=== PATIENT | male | born 1995 | race American Indian/Alaskan Native ===

== ENCOUNTER 2017-09-02 16:13 | Emergency (ER) | payer MEDICAID ==
[2017-09-02 16:27] VITALS: BP 152/87
[2017-09-02] MEDS ORDERED: predniSONE 20 MG Tab PO ONE (17:09)
[2017-09-02] MEDS ORDERED: Codeine/Promethazine 10-6.25 MG/5 ML Syrup 5 ML UD Cup PO ONE (17:09)
[2017-09-02] MEDS ORDERED: Albuterol 6.7 GM Inhaler INH ONE (17:10)
[2017-09-02] MEDS ORDERED: Codeine/Promethazine 10-6.25 MG/5 ML Syrup 5 ML UD Cup ONE (17:21)
--- NOTE | 2017-09-03 17:15 | EDM.PDOC ---
Scribed by Ju Garnica 09/03/17 1715 for Sinan Frederick MD ED HPI GENERAL MEDICAL PROBLEM - General Chief Complaint: Respiratory Problem Stated Complaint: COLD [phone] Time Seen by Provider: 09/02/17 16:32 Source of Information: Reports: Patient, RN, RN Notes Reviewed History Limitations: Reports: No Limitations - History of Present Illness INITIAL COMMENTS - FREE TEXT/NARRATIVE: Patient presents with complaint of fever, cough, generalized body aches and sore throat. Brother at home with same symptoms. Denies difficulty breathing or wheezing. Duration: Week(s): (1) Location: Reports: Other (sore throat) Quality: Reports: Ache Severity: Moderate Improves with: Reports: None Worsens with: Reports: None Associated Symptoms: Reports: No Other Symptoms Back Pain Score (Numeric/FACES): 6 - Related Data Allergies Allergy/AdvReac Type Severity Reaction Status Date / Time No Known Allergies Allergy Verified 09/02/17 16:28 Home Meds: Home Meds . [No Known Home Meds] 12/19/13 [History] Past Medical History - Past Health History Medical/Surgical History: Denies Medical/Surgical History HEENT History: Reports: Other (See Below) Other HEENT History: dental caries Cardiovascular History: Reports: None Respiratory History: Reports: None Gastrointestinal History: Reports: None Genitourinary History: Reports: None Musculoskeletal History: Reports: None Neurological History: Reports: None Psychiatric History: Reports: None Endocrine/Metabolic History: Reports: None, Obesity/BMI 30+ Hematologic History: Reports: None Immunologic History: Reports: None Oncologic (Cancer) History: Reports: None Dermatologic History: Reports: None - Infectious Disease History Infectious Disease History: Reports: None - Past Surgical History Head Surgeries/Procedures: Reports: None Social & Family History - Family History Family Medical History: Noncontributory - Tobacco Use Smoking Status *Q: Never Smoker Years of Tobacco use: 5 Second Hand Smoke Exposure: No - Caffeine Use Caffeine Use: Reports: Soda, Tea - Recreational Drug Use Recreational Drug Use: No ED ROS GENERAL - Review of Systems Review Of Systems: ROS reveals no pertinent complaints other than HPI. ED EXAM, GENERAL - Physical Exam Exam: See Below Exam Limited By: No Limitations General Appearance: Alert, WD/WN, No Apparent Distress, Obese Eye Exam: Bilateral Eye: Normal Inspection Ears: Normal External Exam, Normal Canal, Hearing Grossly Normal, Normal TMs Nose: No Blood, Other (mild nasal congestion with yellow mucus.) Throat/Mouth: Normal Lips, Normal Voice, No Airway Compromise, Other (streaks of pharyngeal erythema.) Head: Atraumatic, Normocephalic Neck: Normal Inspection, Supple, Non-Tender, Full Range of Motion Respiratory/Chest: No Respiratory Distress, No Accessory Muscle Use, Chest Non- Tender, Other (harsh dry cough) Cardiovascular: Normal Peripheral Pulses, Regular Rate, Rhythm, No Edema, No Gallop, No JVD, No Murmur, No Rub GI/Abdominal: Normal Bowel Sounds, Soft, Non-Tender, No Organomegaly, No Distention, No Abnormal Bruit, No Mass, Other (obese) (Male) Exam: Deferred Rectal (Males) Exam: Deferred Back Exam: Normal Inspection, Full Range of Motion, NT Extremities: Normal Inspection, Normal Range of Motion, Non-Tender, Normal Capillary Refill, No Pedal Edema Neurological: Alert Psychiatric: Normal Affect, Normal Mood Skin Exam: Warm, Dry, Intact, Normal Color, No Rash Course - Vital Signs Last Recorded V/S: Last Vital Signs Temp 36.2 C 09/02/17 16:25 Pulse 74 09/02/17 16:25 Resp 22 H 09/02/17 16:25 BP 152/87 H 09/02/17 16:25 Pulse Ox 100 09/02/17 16:25 - Orders/Labs/Meds Orders: Active Orders 24 hr Category Date Time Status RT Post Treatment Assessment [RC] Click to Edit Care 09/02/17 17:10 Active RT Pre-Treatment Assessment [RC] Click to Edit Care 09/02/17 17:10 Active Labs: Rapid strep: Negative. Meds: Medications Discontinued Medications Generic Name Dose Route Start Last Admin Trade Name Freq PRN Reason Stop Dose Admin Albuterol 6.7 gm 09/02/17 17:10 09/02/17 17:27 Proventil Hfa INH 09/02/17 17:11 2 inhalation ONETIME ONE Administration Prednisone 60 mg 09/02/17 17:09 09/02/17 17:27 Prednisone PO 09/02/17 17:10 60 mg ONETIME ONE Administration Promethazine HCl/Codeine 10 ml 09/02/17 17:09 09/02/17 17:27 Phenergan With Codeine PO 09/02/17 17:10 10 ml ONETIME ONE Administration Promethazine HCl/Codeine Confirm 09/02/17 17:21 09/02/17 17:26 Phenergan With Codeine Administered 09/02/17 17:22 Not Given Dose 5 ml .ROUTE .STK-MED ONE Departure - Departure Time of Disposition: 17:24 Disposition: Home, Self-Care 01 Condition: Good Clinical Impression: Viral URI with cough Acute bronchitis Qualifiers: Bronchitis organism: unspecified organism Qualified Code(s): J20.9 - Acute bronchitis, unspecified - Discharge Information Instructions: Acute Bronchitis, [id number], Upper Respiratory Infection, Adult, [id number] Referrals: Purvi Pisano MD [Primary Care Provider] - Forms: ED Department Discharge Additional Instructions: RX: Prednisone 20mg. RX: Tessalon Perles 200mg. RX: Loratidinbe D 24hours. Use Albuterol inhaler 2 puffs [id number] as needed. Follow up in clinic if not improving in 5 days. - My Orders Last 24 Hours: My Active Orders 09/02/17 17:10 RT Post Treatment Assessment [RC] Click to Edit RT Pre-Treatment Assessment [RC] Click to Edit - Assessment/Plan Last 24 Hours: My Active Orders 09/02/17 17:10 RT Post Treatment Assessment [RC] Click to Edit RT Pre-Treatment Assessment [RC] Click to Edit I have read and agree with the documentation that has been completed regarding this visit. By signing this record, I attest that the documentation was completed in my physical presence and is an accurate record of the encounter.
== END 2017-09-02 17:35 | disposition home or self-care (01) ==
LOC: DL.ED 16:13
DX: J20.9 Acute bronchitis, unspecified (principal); J06.9 Acute upper respiratory infection, unspecified
CPT/HCPCS: 87081; 87430; 99283; A9270

== ENCOUNTER 2018-01-26 19:49 | Emergency (ER) | payer MEDICAID ==
[2018-01-26 21:08] VITALS: BP 130/77
[2018-01-27] MEDS ORDERED: Amoxicillin 500 MG Cap PO ONE (00:34)
--- NOTE | 2018-01-27 00:39 | EDM.PDOC ---
ED HPI GENERAL MEDICAL PROBLEM - General Chief Complaint: General Stated Complaint: SICK [phone] Time Seen by Provider: 01/27/18 00:35 Source of Information: Reports: Patient History Limitations: Reports: No Limitations - History of Present Illness INITIAL COMMENTS - FREE TEXT/NARRATIVE: been sick few days with right ear discomfort plugged sensation. coughing on-off. Generalized Pain Score (Numeric/FACES): 6 - Related Data Allergies Allergy/AdvReac Type Severity Reaction Status Date / Time No Known Allergies Allergy Verified 01/26/18 21:04 Home Meds: Home Meds . [No Known Home Meds] 12/19/13 [History] Past Medical History - Past Health History Medical/Surgical History: Denies Medical/Surgical History HEENT History: Reports: Otitis Media, Other (See Below) Other HEENT History: dental caries Cardiovascular History: Reports: None Respiratory History: Reports: None Gastrointestinal History: Reports: None Genitourinary History: Reports: None Musculoskeletal History: Reports: None Neurological History: Reports: None Psychiatric History: Reports: None Endocrine/Metabolic History: Reports: None, Obesity/BMI 30+ Hematologic History: Reports: None Immunologic History: Reports: None Oncologic (Cancer) History: Reports: None Dermatologic History: Reports: None - Infectious Disease History Infectious Disease History: Reports: None - Past Surgical History Head Surgeries/Procedures: Reports: None Social & Family History - Family History Family Medical History: Noncontributory - Tobacco Use Smoking Status *Q: Never Smoker - Caffeine Use Caffeine Use: Reports: Soda, Tea - Recreational Drug Use Recreational Drug Use: No ED ROS GENERAL - Review of Systems Review Of Systems: ROS reveals no pertinent complaints other than HPI. ED EXAM, GENERAL - Physical Exam Exam: See Below Exam Limited By: No Limitations General Appearance: Alert, WD/WN, No Apparent Distress Ears: Normal External Exam, Normal Canal, Hearing Grossly Normal Ear Exam: Right Ear: TM Red, Bilateral Ear: TM Dull Nose: Normal Inspection Throat/Mouth: Normal Voice, No Airway Compromise Head: Atraumatic Neck: Non-Tender, Full Range of Motion Respiratory/Chest: No Respiratory Distress, Lungs Clear, Normal Breath Sounds Cardiovascular: Regular Rate, Rhythm GI/Abdominal: Soft, Non-Tender Neurological: Alert, Oriented, Normal Cognition, Normal Gait, No Motor/Sensory Deficits Psychiatric: Normal Affect, Normal Mood Skin Exam: Warm, Dry, Normal Color Lymphatic: No Adenopathy Course - Vital Signs Last Recorded V/S: Last Vital Signs Temp 36.9 C 01/26/18 21:05 Pulse 89 01/26/18 21:05 Resp 18 01/26/18 21:05 BP 130/77 01/26/18 21:05 Pulse Ox 98 01/26/18 21:05 - Orders/Labs/Meds Meds: Medications Discontinued Medications Generic Name Dose Route Start Last Admin Trade Name Jesus PRN Reason Stop Dose Admin Amoxicillin 500 mg 01/27/18 00:34 01/27/18 00:52 Amoxil PO 01/27/18 00:35 500 mg ONETIME ONE Administration Departure - Departure Time of Disposition: 00:55 Disposition: Home, Self-Care 01 Condition: Good Clinical Impression: Bronchitis Otitis media Qualifiers: Otitis media type: suppurative Chronicity: acute Laterality: right Recurrence: not specified as recurrent Spontaneous tympanic membrane rupture: without spontaneous rupture Qualified Code(s): H66.001 - Acute suppurative otitis media without spontaneous rupture of ear drum, right ear - Discharge Information Instructions: Otitis Media, Adult, Wowj-[id number] Forms: ED Department Discharge Additional Instructions: 1) rest 2) take tylenol or motrin for fever 3) follow up at clinic rx given; amox 250mg tid x 30
== END 2018-01-27 00:55 | disposition home or self-care (01) ==
LOC: DL.ED 19:49
DX: H66.001 Acute suppurative otitis media without spontaneous rupture of ear drum, right ear (principal); J40 Bronchitis, not specified as acute or chronic
CPT/HCPCS: 99283; A9270

== ENCOUNTER 2018-05-02 16:40 | Emergency (ER) | payer MEDICAID ==
[2018-05-02 16:49] VITALS: BP 147/80
--- NOTE | 2018-05-02 17:07 | EDM.PDOC ---
Scribed by Ju Garnica 05/02/18 5557 for Sinan Frederick MD ED HPI GENERAL MEDICAL PROBLEM - General Chief Complaint: ENT Problem Stated Complaint: EAR ACHE [phone] Time Seen by Provider: 05/02/18 16:46 Source of Information: Reports: Patient, RN, RN Notes Reviewed History Limitations: Reports: No Limitations - History of Present Illness INITIAL COMMENTS - FREE TEXT/NARRATIVE: Patient presents to ER with complaint of onset of right ear pain on Tuesday, April 28. He awoke with Tuesday after the onset with drainage. Yesterday he developed vertigo with description "room spin" dizziness. Denies nausea, vomiting or fevers. Onset Date: 04/28/18 Duration: Getting Worse Location: Reports: Other (ear) Quality: Reports: Ache Severity: Moderate Improves with: Reports: None Worsens with: Reports: Movement (of the head) Associated Symptoms: Reports: No Other Symptoms Right Ear Pain Score (Numeric/FACES): 6 - Related Data Allergies Allergy/AdvReac Type Severity Reaction Status Date / Time No Known Allergies Allergy Verified 05/02/18 16:45 Home Meds: Home Meds . [No Known Home Meds] 12/19/13 [History] Past Medical History - Past Health History Medical/Surgical History: Denies Medical/Surgical History HEENT History: Reports: Otitis Media, Other (See Below) Other HEENT History: dental caries Cardiovascular History: Reports: None Respiratory History: Reports: None Gastrointestinal History: Reports: None Genitourinary History: Reports: None Musculoskeletal History: Reports: None Neurological History: Reports: None Psychiatric History: Reports: None Endocrine/Metabolic History: Reports: None, Obesity/BMI 30+ Hematologic History: Reports: None Immunologic History: Reports: None Oncologic (Cancer) History: Reports: None Dermatologic History: Reports: None - Infectious Disease History Infectious Disease History: Reports: None - Past Surgical History Head Surgeries/Procedures: Reports: None Social & Family History - Family History Family Medical History: Noncontributory - Caffeine Use Caffeine Use: Reports: Soda, Tea ED ROS ENT - Review of Systems Review Of Systems: ROS reveals no pertinent complaints other than HPI. ED EXAM, ENT - Physical Exam Exam: See Below Exam Limited By: No Limitations General Appearance: Alert, WD/WN, No Apparent Distress, Obese Eye Exam: Bilateral Eye: EOMI, Nystagmus (lateral gaze nystagmus), PERRL Ears: Hearing Grossly Normal, Canal Discharge (yellow of the right canal), Canal Swelling (right), TM Bulging (right), TM Dullness (right), TM Erythema ( right), Other (left ear normal. ). No: Auricular Erythema, Auricular Tenderness , Mastoid Swelling, Mastoid Tenderness, TM Blood, TM Perforation Nose: Normal Inspection, Normal Mucousa, No Blood Mouth/Throat: Normal Inspection, Normal Gums, Normal Lips, Normal Oropharynx, Normal Teeth Head: Atraumatic, Normocephalic Neck: Normal Inspection, Supple, Non-Tender, Full Range of Motion. No: Limited Range of Motion, Lymphadenopathy (L) Respiratory/Chest: No Respiratory Distress, Lungs Clear, Normal Breath Sounds, No Accessory Muscle Use, Chest Non-Tender Cardiovascular: Regular Rate, Rhythm Neurological: Alert, Oriented, CN II-XII Intact, Normal Cognition, Normal Gait, No Motor/Sensory Deficits Psychiatric: Normal Affect, Normal Mood Skin: Warm, Dry, Intact, Normal Color, No Rash Course - Vital Signs Last Recorded V/S: Last Vital Signs Temp 37.1 C 05/02/18 16:48 Pulse 61 05/02/18 16:48 Resp 15 05/02/18 16:48 BP 147/80 H 05/02/18 16:48 Pulse Ox 99 05/02/18 16:48 - Orders/Labs/Meds Orders: Active Orders 24 hr Category Date Time Status CULTURE EAR [RM] Stat Lab 05/02/18 16:55 Received Departure - Departure Time of Disposition: 16:56 Disposition: Home, Self-Care 01 Condition: Good Clinical Impression: Labyrinthitis of right ear Right otitis externa Qualifiers: Otitis externa type: other infective Chronicity: acute Qualified Code(s): H60.391 - Other infective otitis externa, right ear Right otitis media Qualifiers: Otitis media type: suppurative Chronicity: acute Recurrence: not specified as recurrent Spontaneous tympanic membrane rupture: without spontaneous rupture Qualified Code(s): H66.001 - Acute suppurative otitis media without spontaneous rupture of ear drum, right ear - Discharge Information *PRESCRIPTION DRUG MONITORING PROGRAM REVIEWED*: Not Applicable *COPY OF PRESCRIPTION DRUG MONITORING REPORT IN PATIENT MERT: Not Applicable Instructions: Otitis Externa, [id number], Otitis Media, Adult, Yjat-yf-Cdoz, Labyrinthitis, [id number] Referrals: Mio Sullivan, ASSOCIATE PROFESSOR OF SURGERY [Primary Care Provider] - Forms: ED Department Discharge Additional Instructions: RX: Augmentin 875mg. RX: Ofloxacin otic solution 0.3%. RX: Meclizine 25mg. Follow up in clinic in 7 to 10 days if not improving. Avoid getting water in the ear. - My Orders Last 24 Hours: My Active Orders 05/02/18 16:55 CULTURE EAR [RM] Stat - Assessment/Plan Last 24 Hours: My Active Orders 05/02/18 16:55 CULTURE EAR [RM] Stat I have read and agree with the documentation that has been completed regarding this visit. By signing this record, I attest that the documentation was completed in my physical presence and is an accurate record of the encounter.
== END 2018-05-02 17:03 | disposition home or self-care (01) ==
LOC: DL.ED 16:40
DX: H83.01 Labyrinthitis, right ear (principal); H60.391 Other infective otitis externa, right ear; H66.001 Acute suppurative otitis media without spontaneous rupture of ear drum, right ear
CPT/HCPCS: 87070; 87186; 99282

== ENCOUNTER 2019-04-20 19:32 | Emergency (ER) | payer MEDICAID ==
[2019-04-20 19:53] VITALS: BP 141/81
== END 2019-04-20 20:50 | disposition left against medical advice (07) ==
LOC: DL.ED 19:32
DX: Z53.21 Procedure and treatment not carried out due to patient leaving prior to being seen by health care provider (principal)

== ENCOUNTER 2019-10-26 15:55 | Emergency (ER) | payer MEDICAID ==
[2019-10-26 16:42] VITALS: BP 132/79; PULSE 86
--- NOTE | 2019-10-26 16:42 | EDM.PDOC ---
<Samantha Wilde - Last Filed: 10/26/19 16:37> ED HPI GENERAL MEDICAL PROBLEM - General Chief Complaint: ENT Problem Stated Complaint: LEFT EAR PAIN, RIGHT EAR MUFFLED Time Seen by Provider: 10/26/19 16:30 Source of Information: Reports: Patient History Limitations: Reports: No Limitations - History of Present Illness INITIAL COMMENTS - FREE TEXT/NARRATIVE: Patient presents to the ED with concerns of left ear pain and right ear fullness for the past 2 days. The patient reports a recurrent history of ear infections. He does admit that these symptoms tend to occur more often in the spring and fall months. He has seen ENT in the past who did not feel that any treatment was recommended at that time. The patient does not take any over the counter or prescription medications. He has not tried any treatments for this current complaint. 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 [No Known Home Meds] 12/19/13 [History] Past Medical History - Past Health History Medical/Surgical History: Denies Medical/Surgical History HEENT History: Reports: Otitis Media, Other (See Below) (recurrent eustachian tube dysfunction) Other HEENT History: dental caries Cardiovascular History: Reports: None Respiratory History: Reports: None Gastrointestinal History: Reports: None Genitourinary History: Reports: None Musculoskeletal History: Reports: None Neurological History: Reports: None Psychiatric History: Reports: None Endocrine/Metabolic History: Reports: Obesity/BMI 30+ Hematologic History: Reports: None Immunologic History: Reports: None Oncologic (Cancer) History: Reports: None Dermatologic History: Reports: None - Infectious Disease History Infectious Disease History: Reports: None - Past Surgical History Head Surgeries/Procedures: Reports: None HEENT Surgical History: Reports: Oral Surgery Social & Family History - Family History Family Medical History: Noncontributory - Caffeine Use Caffeine Use: Reports: Tea - Living Situation & Occupation Living situation: Reports: with Family Occupation: Employed ED ROS ENT - Review of Systems Review Of Systems: See Below Constitutional: Denies: Fever, Chills HEENT: Reports: Ear Pain, Rhinitis. Denies: Sinus Problem, Throat Pain, Vertigo Respiratory: Denies: Shortness of Breath, Wheezing, Cough Cardiovascular: Denies: Chest Pain GI/Abdominal: Denies: Abdominal Pain, Constipation, Diarrhea ED EXAM, ENT - Physical Exam Exam: See Below Exam Limited By: No Limitations General Appearance: Alert, No Apparent Distress Eye Exam: Bilateral Eye: PERRL Ears: Normal External Exam, Hearing Grossly Normal, TM Dullness, Other (TM intraction bilaterally). No: Auricular Tenderness, Mastoid Tenderness, Canal Foreign Body, TM Bulging Nose: Normal Inspection, Normal Mucousa, Other (denies sinus tenderness to palpation). No: Nasal Tenderness Mouth/Throat: Normal Inspection, Normal Oropharynx Head: Atraumatic, Normocephalic Respiratory/Chest: No Respiratory Distress, Lungs Clear, Normal Breath Sounds Cardiovascular: Regular Rate, Rhythm, No Murmur Course - Vital Signs Last Recorded V/S: Last Vital Signs Temp 98.7 F 10/26/19 16:31 Pulse 86 10/26/19 16:31 Resp 16 10/26/19 16:31 BP 132/79 10/26/19 16:31 Pulse Ox 99 10/26/19 16:31 Departure - Departure Time of Disposition: 16:42 Disposition: Home, Self-Care 01 Condition: Good Clinical Impression: Eustachian tube dysfunction Qualifiers: Laterality: bilateral Qualified Code(s): H69.83 - Other specified disorders of Eustachian tube, bilateral - Discharge Information *PRESCRIPTION DRUG MONITORING PROGRAM REVIEWED*: Not Applicable *COPY OF PRESCRIPTION DRUG MONITORING REPORT IN PATIENT MERT: Not Applicable Instructions: Eustachian Tube Dysfunction Forms: ED Department Discharge Additional Instructions: Citirizine/Zyrtec or Claritin daily for sinus allergy symptoms Fluticasone/flonase nasal spray, 2 sprays in each nostril daily Rx: Prednisone. Take this medication with food. Prior to noon. Rx: Claritin Sepsis Event Note - Focused Exam Vital Signs: Vital Signs Temp Pulse Resp BP Pulse Ox 10/26/19 16:31 98.7 F 86 16 132/79 99 <Sinan Frederick - Last Filed: 10/26/19 16:46> ED HPI GENERAL MEDICAL PROBLEM Left Ear Pain Score (Numeric/FACES): 4 Course - Re-Assessments/Exams Free Text/Narrative Re-Assessment/Exam: 10/26/19 16:46 I personally performed or re-performed the physical examination and medical decision making. I have verified all student documentation or findings, including history, physical exam and/or medical decision making. Sepsis Event Note - Focused Exam Date Exam was Performed: 10/26/19 Time Exam was Performed: 16:45
== END 2019-10-26 16:53 | disposition home or self-care (01) ==
LOC: DL.ED 15:55
DX: H69.83 Other specified disorders of Eustachian tube, bilateral (principal)
CPT/HCPCS: 99282

== ENCOUNTER 2020-06-01 12:35 | Emergency (ER) | payer MEDICAID ==
[2020-06-01 12:57] VITALS: BP 151/95; PULSE 82
--- NOTE | 2020-06-01 14:16 | EDM.PDOC ---
ED HPI GENERAL MEDICAL PROBLEM - General Chief Complaint: Abdominal Pain Stated Complaint: BURNING ACIDIC STOMACHE,DRY HEEVING Time Seen by Provider: 06/01/20 13:10 Source of Information: Reports: Patient, RN, RN Notes Reviewed - History of Present Illness INITIAL COMMENTS - FREE TEXT/NARRATIVE: The patient presents to the ED via personal vehicle with complaints of fatigue, headache, nausea, dizziness, and midepigastric burning. He relates aside from the midepigastric burning, which started yesterday, all other symptoms began about five days ago following a new exercise routine. He denies fever, shaking chills, vomiting, dysuria, hematuria, melena, dark tarry stools, or changes to his bladder patterns. He does attest to "a few" loose stools over the last 24 hours. He states he has made no changes to his diet, but relates he ate a rather large, spicy meal from [employer] yesterday, 05/31/20. He has taken one dose of Advil and one dose of "baking soda water (1 tbs baking soda in 1 cup water)" for this problem with no relief noted. - Related Data Allergies Allergy/AdvReac Type Severity Reaction Status Date / Time No Known Allergies Allergy Verified 06/01/20 12:55 Home Meds: Home Meds . [No Known Home Meds] 12/19/13 [History] Past Medical History - Past Health History Medical/Surgical History: Denies Medical/Surgical History HEENT History: Reports: Otitis Media, Other (See Below) Other HEENT History: dental caries Cardiovascular History: Reports: None Respiratory History: Reports: None Gastrointestinal History: Reports: None Genitourinary History: Reports: None Musculoskeletal History: Reports: None Neurological History: Reports: None Psychiatric History: Reports: None Endocrine/Metabolic History: Reports: Obesity/BMI 30+ Hematologic History: Reports: None Immunologic History: Reports: None Oncologic (Cancer) History: Reports: None Dermatologic History: Reports: None - Infectious Disease History Infectious Disease History: Reports: None - Past Surgical History Head Surgeries/Procedures: Reports: None HEENT Surgical History: Reports: Oral Surgery Social & Family History - Family History Family Medical History: Noncontributory - Tobacco Use Smoking Status *Q: Never Smoker - Caffeine Use Caffeine Use: Reports: None - Recreational Drug Use Recreational Drug Use: No - Living Situation & Occupation Living situation: Reports: with Family Occupation: Employed ED ROS GENERAL - Review of Systems Review Of Systems: Comprehensive ROS is negative, except as noted in HPI. ED EXAM, GI/ABD - Physical Exam Exam: See Below Exam Limited By: No Limitations General Appearance: Alert, WD/WN, No Apparent Distress Throat/Mouth: Normal Inspection, Normal Voice, No Airway Compromise Neck: Normal Inspection, Supple, Non-Tender GI/Abdominal Exam: Normal Bowel Sounds, Soft, Non-Tender, No Organomegaly, No Distention, No Mass. No: Guarding, Rigid, Rebound, Tender (Male) Exam: Deferred Rectal (Males) Exam: Deferred Neurological: Alert, Oriented, CN II-XII Intact Skin Exam: Warm, Dry, Intact, Normal Color, No Rash. No: Ecchymosis, Petechiae, Rash Course - Vital Signs Last Recorded V/S: Last Vital Signs Temp 98.5 F 06/01/20 12:55 Pulse 82 06/01/20 12:55 Resp 18 06/01/20 12:55 BP 151/95 H 06/01/20 12:55 Pulse Ox 100 06/01/20 12:55 - Orders/Labs/Meds Orders: Active Orders 24 hr Category Date Time Status CORONAVIRUS COVID-19 RAPID [MOLEC] Stat Lab 06/01/20 13:43 Received - Re-Assessments/Exams Free Text/Narrative Re-Assessment/Exam: 06/01/20 13:20 Will swab for COVID given generalized malaise, headache, and abdominal discom fort. 06/01/20 14:00 COVID negative. Will discharge home with Omeprazole. Departure - Departure Time of Disposition: 14:11 Disposition: Home, Self-Care 01 Condition: Good Clinical Impression: Heartburn - Discharge Information *PRESCRIPTION DRUG MONITORING PROGRAM REVIEWED*: Not Applicable *COPY OF PRESCRIPTION DRUG MONITORING REPORT IN PATIENT MERT: Not Applicable Instructions: Heartburn, [id number] Additional Instructions: Rx: Omeprazole 20mg COIVD screen negative. Follow up with primary care provider early next week. Sepsis Event Note (ED) - Evaluation Sepsis Screening Result: No Definite Risk - Focused Exam Vital Signs: Vital Signs Temp Pulse Resp BP Pulse Ox 06/01/20 12:55 98.5 F 82 18 151/95 H 100 - My Orders Last 24 Hours: My Active Orders 06/01/20 13:43 CORONAVIRUS COVID-19 RAPID [MOLEC] Stat - Assessment/Plan Last 24 Hours: My Active Orders 06/01/20 13:43 CORONAVIRUS COVID-19 RAPID [MOLEC] Stat
== END 2020-06-01 14:18 | disposition home or self-care (01) ==
LOC: DL.ED 12:35
DX: R12 Heartburn (principal); Z20.828 Contact with and (suspected) exposure to other viral communicable diseases; R42 Dizziness and giddiness; R51.9 Headache, unspecified; R53.83 Other fatigue; R11.0 Nausea; E66.9 Obesity, unspecified; Z68.42 Body mass index [BMI] 45.0-49.9, adult
CPT/HCPCS: 99284; U0002

== ENCOUNTER 2020-06-05 21:49 | Emergency (ER) | payer MEDICAID ==
[2020-06-05] MEDS ORDERED: Ondansetron 4 MG Tab.DIS PO ONE (21:50)
[2020-06-05 22:50] VITALS: BP 136/68; PULSE 70
[2020-06-05] MEDS ORDERED: Sodium Chloride 0.9% 1,000 ML IV ONE (22:53)
[2020-06-05] MEDS ORDERED: Ondansetron 4 MG/2 ML SDV IVPUSH ONE (22:53)
--- NOTE | 2020-06-05 23:04 | EDM.PDOC ---
ED HPI GENERAL MEDICAL PROBLEM - General Chief Complaint: Gastrointestinal Problem Stated Complaint: DIZZINESS, WEAKNESS, UPSET STOMACH Time Seen by Provider: 06/05/20 23:04 Source of Information: Reports: Patient, Family History Limitations: Reports: No Limitations - History of Present Illness INITIAL COMMENTS - FREE TEXT/NARRATIVE: ED with c/o feeling dizzy and weak. Nausea no vomiting. Dizziness worse when changing position. Has had similar sx in past , has not taken anything at home. Denies fever, no chills. No sore throat or ear pain. - Related Data Allergies Allergy/AdvReac Type Severity Reaction Status Date / Time No Known Allergies Allergy Verified 06/01/20 12:55 Home Meds: Home Meds . [No Known Home Meds] 12/19/13 [History] Past Medical History - Past Health History Medical/Surgical History: Denies Medical/Surgical History HEENT History: Reports: Otitis Media, Other (See Below) Other HEENT History: dental caries Cardiovascular History: Reports: None Respiratory History: Reports: None Gastrointestinal History: Reports: None Genitourinary History: Reports: None Musculoskeletal History: Reports: None Neurological History: Reports: None Psychiatric History: Reports: None Endocrine/Metabolic History: Reports: Obesity/BMI 30+ Hematologic History: Reports: None Immunologic History: Reports: None Oncologic (Cancer) History: Reports: None Dermatologic History: Reports: None - Infectious Disease History Infectious Disease History: Reports: None - Past Surgical History Head Surgeries/Procedures: Reports: None HEENT Surgical History: Reports: Oral Surgery Social & Family History - Family History Family Medical History: Noncontributory - Caffeine Use Caffeine Use: Reports: None - Living Situation & Occupation Living situation: Reports: with Family Occupation: Employed ED ROS GENERAL - Review of Systems Review Of Systems: Comprehensive ROS is negative, except as noted in HPI. ED EXAM, GI/ABD - Physical Exam Exam: See Below Exam Limited By: No Limitations General Appearance: Alert, Mild Distress, Obese Ears: Normal External Exam, Normal Canal, Normal TMs Nose: Normal Inspection Throat/Mouth: Normal Inspection Head: Atraumatic, Normocephalic Neck: Normal Inspection, Supple, Non-Tender, Full Range of Motion Respiratory/Chest: No Respiratory Distress, Lungs Clear Cardiovascular: Normal Peripheral Pulses, Regular Rate, Rhythm GI/Abdominal Exam: Normal Bowel Sounds, Soft Back Exam: Normal Inspection, Full Range of Motion Extremities: Normal Inspection Neurological: Alert, Oriented, Normal Cognition Psychiatric: Flat Affect Skin Exam: Warm, Dry, Intact, Normal Color Course - Vital Signs Last Recorded V/S: Last Vital Signs Temp 96.7 F L 06/05/20 22:49 Pulse 70 06/05/20 22:49 Resp 16 06/05/20 22:49 BP 136/68 06/05/20 22:49 Pulse Ox 98 06/05/20 22:49 Orthostatic Blood Pressure [ 116/62 Standing] Orthostatic Blood Pressure [ 120/64 Sitting] Orthostatic Blood Pressure [ 123/66 Supine] - Orders/Labs/Meds Labs: Laboratory Tests 06/05/20 06/05/20 Range/Units 23:00 23:00 WBC 10.8 H (5.0-10.0) 10^3/uL RBC 5.77 (4.6-6.2) 10^6/uL Hgb 16.5 D (14.0-18.0) g/dL Hct 47.5 (40.0-54.0) % MCV 82.3 (80-100) fL MCH 28.6 (27.0-34.0) pg MCHC 34.7 (33.0-35.0) g/dL Plt Count 197 (150-450) 10^3/uL Neut % (Auto) 75.8 H (42.2-75.2) % Lymph % (Auto) 16.5 L (20.5-50.1) % [place] % (Auto) 6.4 (2-8) % Eos % (Auto) 1.2 (1.0-3.0) % Baso % (Auto) 0.1 (0.0-1.0) % Sodium 138 (136-145) mmol/L Potassium 3.6 (3.5-5.1) mmol/L Chloride 101 (98-107) mmol/L Carbon Dioxide 28 (21-32) mmol/L Anion Gap 12.6 (7-13) mEq/L BUN 11 (7-18) mg/dL Creatinine 1.22 (0.70-1.30) mg/dL Est Cr Clr Drug Dosing TNP Estimated GFR (MDRD) > 60 BUN/Creatinine Ratio 9.0 (No establ ref range) Glucose 95 (74-99) mg/dL Calcium 8.9 (8.5-10.1) mg/dL Total Bilirubin 1.6 H (0.2-1.0) mg/dL AST 41 H (15-37) U/L ALT 80 H (16-63) U/L Alkaline Phosphatase 113 (46-116) U/L Total Protein 8.6 H (6.4-8.2) g/dL Albumin 4.1 (3.4-5.0) g/dL Globulin 4.5 Albumin/Globulin Ratio 0.9 Meds: Medications Discontinued Medications Generic Name Dose Route Start Last Admin Trade Name Freq PRN Reason Stop Dose Admin Sodium Chloride 1,000 mls @ 999 mls/hr 06/05/20 22:53 06/05/20 23:09 Normal Saline IV 06/05/20 23:53 999 mls/hr .BOLUS ONE Administration Meclizine HCl 12.5 mg 06/05/20 23:16 06/05/20 23:23 Antivert PO 06/05/20 23:17 12.5 mg ONETIME ONE Administration Ondansetron HCl 4 mg 06/05/20 22:53 06/05/20 23:07 Zofran IVPUSH 06/05/20 22:54 4 mg ONETIME ONE Administration Ondansetron HCl Confirm 06/06/20 00:07 Zofran Odt Administered 06/06/20 00:08 Dose 8 mg .ROUTE .STK-MED ONE Departure - Departure Time of Disposition: 23:52 Disposition: Home, Self-Care 01 Condition: Good Clinical Impression: Heartburn Labyrinthitis Qualifiers: Laterality: bilateral Qualified Code(s): H83.03 - Labyrinthitis, bilateral - Discharge Information *PRESCRIPTION DRUG MONITORING PROGRAM REVIEWED*: No *COPY OF PRESCRIPTION DRUG MONITORING REPORT IN PATIENT MERT: No Instructions: Indigestion, [id number], Labyrinthitis, Nausea and Vomiting, Adult, [id number] Referrals: PCP,None [Primary Care Provider] - Forms: ED Department Discharge Additional Instructions: bland diet, encourage liquids small amounts more frequently until stomach settles down tylenol 650mg every 4 hours as needed for fever/ discomfort meclizine 25mg every 8 hours as needed for dizziness continue omeprazole zofron 4mg ODT every 4 hours as needed for nausea Sepsis Event Note (ED) - Evaluation Sepsis Screening Result: No Definite Risk - Focused Exam Vital Signs: Vital Signs Temp Pulse Resp BP Pulse Ox 06/05/20 22:49 96.7 F L 70 16 136/68 98
[2020-06-05] MEDS ORDERED: Meclizine 12.5 MG Tab PO ONE (23:16)
[2020-06-05 23:24] LABS: ANION GAP 12.6 mEq/L (7-13); CHLORIDE,CL 101 mmol/L (98-107); SODIUM,NA 138 mmol/L (136-145)
[2020-06-06] MEDS ORDERED: Ondansetron 4 MG Tab.DIS ONE (00:07)
== END 2020-06-06 00:17 | disposition home or self-care (01) ==
LOC: DL.ED 21:49
DX: H83.03 Labyrinthitis, bilateral (principal); R12 Heartburn; E66.9 Obesity, unspecified
CPT/HCPCS: 36415; 80053; 85025; 96374; 99284; A9270; J2405; J7030; 99283

== ENCOUNTER 2020-08-08 18:35 | Emergency (ER) | payer MEDICAID ==
[2020-08-08 18:55] VITALS: BP 135/65; PULSE 89
--- NOTE | 2020-08-08 19:23 | EDM.PDOC ---
ED HPI GENERAL MEDICAL PROBLEM - General Chief Complaint: General Stated Complaint: dizziness stuffed nose cant eat constant gas? Time Seen by Provider: 08/08/20 19:18 Source of Information: Reports: Patient History Limitations: Reports: No Limitations - History of Present Illness INITIAL COMMENTS - FREE TEXT/NARRATIVE: gives 1 year h/o headache and neck pain got worse past month but not seen anyone till tonight since been nauseous all day and tried eating but felt worse and weak and no energy and feel unsteady with worsening of headache and neck. denies trauma. Bilateral Head Pain Score (Numeric/FACES): 6 - Related Data Allergies Allergy/AdvReac Type Severity Reaction Status Date / Time No Known Allergies Allergy Verified 08/08/20 18:57 Home Meds: Home Meds . [No Known Home Meds] 12/19/13 [History] Past Medical History - Past Health History Medical/Surgical History: Denies Medical/Surgical History HEENT History: Reports: Otitis Media, Other (See Below) Other HEENT History: dental caries Cardiovascular History: Reports: None Respiratory History: Reports: None Gastrointestinal History: Reports: None Genitourinary History: Reports: None Musculoskeletal History: Reports: None Neurological History: Reports: None Psychiatric History: Reports: None Endocrine/Metabolic History: Reports: Obesity/BMI 30+ Hematologic History: Reports: None Immunologic History: Reports: None Oncologic (Cancer) History: Reports: None Dermatologic History: Reports: None - Infectious Disease History Infectious Disease History: Reports: None - Past Surgical History Head Surgeries/Procedures: Reports: None HEENT Surgical History: Reports: Oral Surgery Social & Family History - Family History Family Medical History: No Pertinent Family History - Tobacco Use Tobacco Use Status *Q: Never Tobacco User - Caffeine Use Caffeine Use: Reports: None - Recreational Drug Use Recreational Drug Use: No - Living Situation & Occupation Living situation: Reports: with Family Occupation: Employed ED ROS GENERAL - Review of Systems Review Of Systems: Comprehensive ROS is negative, except as noted in HPI. ED EXAM, GENERAL - Physical Exam Exam: See Below Exam Limited By: No Limitations General Appearance: Alert, WD/WN, Mild Distress, Other (upset) Eye Exam: Bilateral Eye: PERRL (pupils ER @ 4mm) Ears: Hearing Grossly Normal Throat/Mouth: Normal Voice, No Airway Compromise Head: Atraumatic Neck: Non-Tender, Full Range of Motion Respiratory/Chest: No Respiratory Distress Cardiovascular: Regular Rate, Rhythm GI/Abdominal: Soft, Non-Tender (Male) Exam: Deferred Rectal (Males) Exam: Deferred Neurological: Alert, Oriented, Normal Cognition, Normal Gait, No Motor/Sensory Deficits Psychiatric: Flat Affect Skin Exam: Warm, Dry, Normal Color Lymphatic: No Adenopathy Course - Vital Signs Last Recorded V/S: Last Vital Signs Temp 37.1 C 08/08/20 18:53 Pulse 89 08/08/20 18:53 Resp 16 08/08/20 18:53 BP 135/65 08/08/20 18:53 Pulse Ox 100 08/08/20 18:53 - Orders/Labs/Meds Orders: Active Orders 24 hr Category Date Time Status Isolation [COMM] Routine Oth 08/08/20 20:15 Active Labs: Laboratory Tests 08/08/20 08/08/20 08/08/20 Range/Units 19:19 19:19 19:27 WBC 11.0 H (5.0-10.0) 10^3/uL RBC 5.65 (4.6-6.2) 10^6/uL Hgb 16.8 (14.0-18.0) g/dL Hct 47.8 (40.0-54.0) % MCV 84.6 (80-100) fL MCH 29.7 (27.0-34.0) pg MCHC 35.1 H (33.0-35.0) g/dL Plt Count 201 (150-450) 10^3/uL Neut % (Auto) 81.3 H (42.2-75.2) % Lymph % (Auto) 12.8 L (20.5-50.1) % [place] % (Auto) 4.5 (2-8) % Eos % (Auto) 1.2 (1.0-3.0) % Baso % (Auto) 0.2 (0.0-1.0) % Sodium (136-145) mmol/L Potassium (3.5-5.1) mmol/L Chloride (98-107) mmol/L Carbon Dioxide (21-32) mmol/L Anion Gap (7-13) mEq/L BUN (7-18) mg/dL Creatinine (0.70-1.30) mg/dL Est Cr Clr Drug Dosing mL/min Estimated GFR (MDRD) BUN/Creatinine Ratio (No establ ref range) Glucose (74-99) mg/dL Calcium (8.5-10.1) mg/dL Total Bilirubin (0.2-1.0) mg/dL AST (15-37) U/L ALT (16-63) U/L Alkaline Phosphatase (46-116) U/L Total Protein (6.4-8.2) g/dL Albumin (3.4-5.0) g/dL Globulin Albumin/Globulin Ratio Amylase (25-115) U/L Lipase (73-393) U/L Urine Color Yellow (YELLOW) Urine Appearance Clear (CLEAR) Urine pH 7.0 (5.0-9.0) Ur Specific [place] 1.020 (1.005-1.030) Urine Protein Negative (NEGATIVE) Urine Glucose (UA) Negative (NEGATIVE) Urine Ketones 15 H (NEGATIVE) Urine Occult Blood Negative (NEGATIVE) Urine Nitrite Negative (NEGATIVE) Urine Bilirubin Negative (NEGATIVE) Urine Urobilinogen 1.0 (0.2-1.0) mg/dL Ur Leukocyte Esterase Negative (NEGATIVE) Urine Opiates Screen Negative (NEGATIVE) Ur Oxycodone Screen Negative (NEGATIVE) Urine Methadone Screen Negative (NEGATIVE) Ur Barbiturates Screen Negative (NEGATIVE) U Tricyclic Antidepress Negative (NEGATIVE) Ur Phencyclidine Scrn Negative (NEGATIVE) Ur Amphetamine Screen Negative (NEGATIVE) U Methamphetamines Scrn Negative (NEGATIVE) Urine MDMA Screen Negative (NEGATIVE) U Benzodiazepines Scrn Negative (NEGATIVE) Urine Cocaine Screen Negative (NEGATIVE) U Marijuana (THC) Screen Negative (NEGATIVE) Ethyl Alcohol (0) mg/dL SARS-CoV-2 RNA (BERTHA) (NEGATIVE) 08/08/20 08/08/20 Range/Units 19:27 20:15 WBC (5.0-10.0) 10^3/uL RBC (4.6-6.2) 10^6/uL Hgb (14.0-18.0) g/dL Hct (40.0-54.0) % MCV (80-100) fL MCH (27.0-34.0) pg MCHC (33.0-35.0) g/dL Plt Count (150-450) 10^3/uL Neut % (Auto) (42.2-75.2) % Lymph % (Auto) (20.5-50.1) % [place] % (Auto) (2-8) % Eos % (Auto) (1.0-3.0) % Baso % (Auto) (0.0-1.0) % Sodium 140 (136-145) mmol/L Potassium 3.5 (3.5-5.1) mmol/L Chloride 101 (98-107) mmol/L Carbon Dioxide 28 (21-32) mmol/L Anion Gap 14.5 H (7-13) mEq/L BUN 11 (7-18) mg/dL Creatinine 1.20 (0.70-1.30) mg/dL Est Cr Clr Drug Dosing 107.27 mL/min Estimated GFR (MDRD) > 60 BUN/Creatinine Ratio 9.2 (No establ ref range) Glucose 91 (74-99) mg/dL Calcium 9.3 (8.5-10.1) mg/dL Total Bilirubin 1.7 H (0.2-1.0) mg/dL AST 18 (15-37) U/L ALT 43 (16-63) U/L Alkaline Phosphatase 100 (46-116) U/L Total Protein 8.4 H (6.4-8.2) g/dL Albumin 4.4 (3.4-5.0) g/dL Globulin 4.0 Albumin/Globulin Ratio 1.1 Amylase 17 L (25-115) U/L Lipase 92 (73-393) U/L Urine Color (YELLOW) Urine Appearance (CLEAR) Urine pH (5.0-9.0) Ur Specific [place] (1.005-1.030) Urine Protein (NEGATIVE) Urine Glucose (UA) (NEGATIVE) Urine Ketones (NEGATIVE) Urine Occult Blood (NEGATIVE) Urine Nitrite (NEGATIVE) Urine Bilirubin (NEGATIVE) Urine Urobilinogen (0.2-1.0) mg/dL Ur Leukocyte Esterase (NEGATIVE) Urine Opiates Screen (NEGATIVE) Ur Oxycodone Screen (NEGATIVE) Urine Methadone Screen (NEGATIVE) Ur Barbiturates Screen (NEGATIVE) U Tricyclic Antidepress (NEGATIVE) Ur Phencyclidine Scrn (NEGATIVE) Ur Amphetamine Screen (NEGATIVE) U Methamphetamines Scrn (NEGATIVE) Urine MDMA Screen (NEGATIVE) U Benzodiazepines Scrn (NEGATIVE) Urine Cocaine Screen (NEGATIVE) U Marijuana (THC) Screen (NEGATIVE) Ethyl Alcohol < 3 (0) mg/dL SARS-CoV-2 RNA (BERTHA) Negative (NEGATIVE) - Re-Assessments/Exams Free Text/Narrative Re-Assessment/Exam: 08/08/20 21:17 results discussed with pt. Departure - Departure Time of Disposition: 21:17 Disposition: Home, Self-Care 01 Condition: Good Clinical Impression: Flu syndrome - Discharge Information Instructions: Influenza, Adult, [id number] Forms: ED Department Discharge Additional Instructions: 1) rest 2) liquid diet next 4 to 5 days 3) take tylenol or motrin for discomfort 4) follow up at clinic Sepsis Event Note (ED) - Evaluation Sepsis Screening Result: No Definite Risk - Focused Exam Vital Signs: Vital Signs Temp Pulse Resp BP Pulse Ox 08/08/20 18:53 37.1 C 89 16 135/65 100 - My Orders Last 24 Hours: My Active Orders 08/08/20 20:15 Isolation [COMM] Routine - Assessment/Plan Last 24 Hours: My Active Orders 08/08/20 20:15 Isolation [COMM] Routine
[2020-08-08 19:53] LABS: ANION GAP 14.5 mEq/L (7-13); CHLORIDE,CL 101 mmol/L (98-107); SODIUM,NA 140 mmol/L (136-145)
--- NOTE | 2020-08-08 20:10 | CT ---
PROCEDURE INFORMATION: Exam: CT Head Without Contrast Exam date and time: 08/08/2020 7:27 PM Age: 24 years old Clinical indication: Other: No trauma; Additional info: Headache neck pain unsteady weakness TECHNIQUE: Imaging protocol: Computed tomography of the head without contrast. Radiation optimization: All CT scans at this facility use at least one of these dose optimization techniques: automated exposure control; mA and/or kV adjustment per patient size (includes targeted exams where dose is matched to clinical indication); or iterative reconstruction. COMPARISON: No relevant prior studies available. FINDINGS: Brain: Prominent cystic structure along the posterior aspect of the posterior fossa likely a ethan cisterna magna, normal variant. Cerebral ventricles: No ventriculomegaly. Bones/joints: Unremarkable. No acute fracture. Paranasal sinuses: Visualized sinuses are unremarkable. No fluid levels. Mastoid air cells: Visualized mastoid air cells are well aerated. Soft tissues: Unremarkable. IMPRESSION: No acute intracranial process.
--- NOTE | 2020-08-08 20:15 | CT ---
PROCEDURE INFORMATION: Exam: CT Cervical Spine Without Contrast Exam date and time: 08/08/2020 7:27 PM Age: 24 years old Clinical indication: Other: No trauma; Additional info: Headache neck pain unsteady weakness TECHNIQUE: Imaging protocol: Computed tomography images of the cervical spine without contrast. Radiation optimization: All CT scans at this facility use at least one of these dose optimization techniques: automated exposure control; mA and/or kV adjustment per patient size (includes targeted exams where dose is matched to clinical indication); or iterative reconstruction. COMPARISON: No relevant prior studies available. FINDINGS: Bones/joints: No acute fracture. Normal alignment. Discs/Spinal canal/Neural foramina: No significant disc protrusion. No severe spinal canal stenosis. No significant neural foraminal narrowing. Lungs: Lung apices are normal. Soft tissues: Unremarkable. IMPRESSION: No acute findings.
== END 2020-08-08 21:21 | disposition home or self-care (01) ==
LOC: DL.ED 18:35
DX: J11.1 Influenza due to unidentified influenza virus with other respiratory manifestations (principal); E66.9 Obesity, unspecified; Z68.41 Body mass index [BMI] 40.0-44.9, adult; Z20.828 Contact with and (suspected) exposure to other viral communicable diseases
CPT/HCPCS: 36415; 70450; 72125; 80053; 80305-QW; 80307; 81003; 82150; 83690; 85025; 87804; 99283; 99284-25; U0002

== ENCOUNTER 2020-08-17 18:33 | Emergency (ER) | payer MEDICAID ==
[2020-08-17] MEDS ORDERED: Meclizine 12.5 MG Tab PO ONE (18:49)
[2020-08-17 18:50] VITALS: BP 118/70; PULSE 93
--- NOTE | 2020-08-17 18:53 | EDM.PDOC ---
ED HPI GENERAL MEDICAL PROBLEM - General Chief Complaint: ENT Problem Stated Complaint: BOTH EARS DRAINAGE, DIZZYNESS, RIGHT HAND SHAKES Time Seen by Provider: 08/17/20 18:49 Source of Information: Reports: Patient History Limitations: Reports: No Limitations - History of Present Illness INITIAL COMMENTS - FREE TEXT/NARRATIVE: c/o 3 days h/o ear feeling plugged up and trying to clean with Q-tip and now they are painful and draining and also feels dizzy and was Dx with flu syndrome last week. got better then this happened. also been having stomach problem past 3 months and his uncle told him he too had the same and thinks it could be an ulcer. also no appetite. - Related Data Allergies Allergy/AdvReac Type Severity Reaction Status Date / Time No Known Allergies Allergy Verified 08/17/20 18:47 Home Meds: Home Meds . [No Known Home Meds] 12/19/13 [History] Past Medical History - Past Health History Medical/Surgical History: Denies Medical/Surgical History HEENT History: Reports: Otitis Media, Other (See Below) Other HEENT History: dental caries Cardiovascular History: Reports: None Respiratory History: Reports: None Gastrointestinal History: Reports: None Genitourinary History: Reports: None Musculoskeletal History: Reports: None Neurological History: Reports: None Psychiatric History: Reports: None Endocrine/Metabolic History: Reports: Obesity/BMI 30+ Hematologic History: Reports: None Immunologic History: Reports: None Oncologic (Cancer) History: Reports: None Dermatologic History: Reports: None - Infectious Disease History Infectious Disease History: Reports: None - Past Surgical History Head Surgeries/Procedures: Reports: None HEENT Surgical History: Reports: Oral Surgery Social & Family History - Family History Family Medical History: No Pertinent Family History - Caffeine Use Caffeine Use: Reports: None - Living Situation & Occupation Living situation: Reports: with Family Occupation: Employed ED ROS GENERAL - Review of Systems Review Of Systems: Comprehensive ROS is negative, except as noted in HPI. ED EXAM, DIZZINESS - Physical Exam Exam: See Below Exam Limited By: No Limitations General Appearance: Alert, WD/WN, No Apparent Distress, Anxious Eye Exam: Bilateral Eye: PERRL (pupils ER @ 4mm) Ears: Hearing Grossly Normal, Canal Discharge, TM Dullness, Other (bilateral) Throat/Mouth: Normal Voice, No Airway Compromise Head Exam: Atraumatic Neck: Non-Tender, Full Range of Motion Respiratory/Chest: No Respiratory Distress Cardiovascular: Regular Rate, Rhythm GI/Abdominal: Soft, Non-Tender (Male) Exam: Deferred Rectal (Males) Exam: Deferred Neurological: Alert, Normal Gait, No Motor/Sensory Deficits, Oriented x 3 Back Exam: Full Range of Motion Extremities: Normal Inspection, Normal Range of Motion Psychiatric: Flat Affect Skin Exam: Warm, Dry, Normal Color Course - Vital Signs Last Recorded V/S: Last Vital Signs Temp 36.6 C 08/17/20 18:49 Pulse 93 08/17/20 18:49 Resp 20 08/17/20 18:49 BP 118/70 08/17/20 18:49 Pulse Ox 100 08/17/20 18:49 - Orders/Labs/Meds Labs: Laboratory Tests 08/17/20 08/17/20 Range/Units 18:55 18:55 WBC 10.8 H (5.0-10.0) 10^3/uL RBC 5.94 (4.6-6.2) 10^6/uL Hgb 17.8 (14.0-18.0) g/dL Hct 50.2 (40.0-54.0) % MCV 84.5 (80-100) fL MCH 30.0 (27.0-34.0) pg MCHC 35.5 H (33.0-35.0) g/dL Plt Count 225 (150-450) 10^3/uL Neut % (Auto) 75.6 H (42.2-75.2) % Lymph % (Auto) 17.1 L (20.5-50.1) % [place] % (Auto) 5.2 (2-8) % Eos % (Auto) 1.8 (1.0-3.0) % Baso % (Auto) 0.3 (0.0-1.0) % Sodium 137 (136-145) mmol/L Potassium 4.4 (3.5-5.1) mmol/L Chloride 101 (98-107) mmol/L Carbon Dioxide 26 (21-32) mmol/L Anion Gap 14.4 H (7-13) mEq/L BUN 14 (7-18) mg/dL Creatinine 1.19 (0.70-1.30) mg/dL Est Cr Clr Drug Dosing 108.17 mL/min Estimated GFR (MDRD) > 60 BUN/Creatinine Ratio 11.8 (No establ ref range) Glucose 98 (74-99) mg/dL Calcium 9.4 (8.5-10.1) mg/dL Total Bilirubin 1.3 H (0.2-1.0) mg/dL AST 23 (15-37) U/L ALT 45 (16-63) U/L Alkaline Phosphatase 107 (46-116) U/L Total Protein 9.1 H (6.4-8.2) g/dL Albumin 4.6 (3.4-5.0) g/dL Globulin 4.5 Albumin/Globulin Ratio 1.0 Amylase 19 L (25-115) U/L Lipase 131 (73-393) U/L Meds: Medications Discontinued Medications Generic Name Dose Route Start Last Admin Trade Name Freq PRN Reason Stop Dose Admin Meclizine HCl 12.5 mg 08/17/20 18:49 08/17/20 18:56 Antivert PO 08/17/20 18:50 12.5 mg ONETIME ONE Administration - Re-Assessments/Exams Free Text/Narrative Re-Assessment/Exam: 08/17/20 19:26 results discussed with pt who is feeling little better s/p antivert. Departure - Departure Time of Disposition: 19:27 Disposition: Home, Self-Care 01 Condition: Good Clinical Impression: Dizziness Otitis externa Qualifiers: Otitis externa type: diffuse Chronicity: acute Laterality: bilateral Qualified Code(s): H60.313 - Diffuse otitis externa, bilateral Gastritis Qualifiers: Gastritis type: unspecified gastritis Chronicity: chronic Gastritis bleeding: without bleeding Qualified Code(s): K29.50 - Unspecified chronic gastritis without bleeding - Discharge Information Instructions: Otitis Externa, [id number] Forms: ED Department Discharge Additional Instructions: 1) see clinic Tuesday for GI REFERRAL FOR STOMACH PROBLEM and POSSIBLE GALL BLADDER ULTRASOUND 2) avoid fatty fried spicy foods rx togo; corticopsorin otic 2 drops qid rx given; antivert 12.5mg tid prn x 12 Sepsis Event Note (ED) - Evaluation Sepsis Screening Result: No Definite Risk - Focused Exam Vital Signs: Vital Signs Temp Pulse Resp BP Pulse Ox 08/17/20 18:49 36.6 C 93 20 118/70 100
[2020-08-17 19:20] LABS: ANION GAP 14.4 mEq/L (7-13); CHLORIDE,CL 101 mmol/L (98-107); SODIUM,NA 137 mmol/L (136-145)
[2020-08-17] MEDS ORDERED: Hydrocortisone/Neomycin/Polymyxin B Otic Susp 10 ML Bottle ONE (19:27)
[2020-08-17] MEDS ORDERED: Ondansetron 4 MG Tab.DIS PO ONE (19:33)
== END 2020-08-17 19:40 | disposition home or self-care (01) ==
LOC: DL.ED 18:33
DX: H60.313 Diffuse otitis externa, bilateral (principal); K29.50 Unspecified chronic gastritis without bleeding; E66.9 Obesity, unspecified; Z68.41 Body mass index [BMI] 40.0-44.9, adult
CPT/HCPCS: 36415; 80053; 82150; 83690; 85025; 99282; 99284; A9270

== ENCOUNTER 2020-09-18 06:58 | Day surgery (SDC) | payer MEDICAID ==
[~2020-09-18 06:58] MED LIST: Midazolam 1 MG/ML 2 ML SDV ONE; Sodium Chloride 0.9% 10 ML Syringe FLUSH PRN; fentaNYL 100 MCG/2 ML SDV ONE
[2020-09-18] MEDS ORDERED: fentaNYL 100 MCG/2 ML SDV IV ONE (06:59)
[2020-09-18] MEDS ORDERED: Midazolam 1 MG/ML 2 ML SDV IV ONE (06:59)
[2020-09-18] MEDS: Dextrose 5%-0.45% NaCl 1,000 ML IV SCH (07:25)
[2020-09-18] MEDS: fentaNYL 100 MCG/2 ML SDV IV ONE ×2 (07:35→07:36)
[2020-09-18] MEDS: Midazolam 1 MG/ML 2 ML SDV IV ONE ×2 (07:36→07:37)
[2020-09-18 09:51] VITALS: BP 123/64; PULSE 77
--- NOTE | 2020-09-18 11:23 | OR ---
DATE: 09/18/2020 PROCEDURES: Esophagogastroduodenoscopy and multiple pinch biopsies. INSTRUMENT USED: [id number] Olympus video panendoscope. PREMEDICATIONS: No oral or topical anesthesia used. Fentanyl 100 mcg intravenous, Versed 2 mg intravenous, nasal O2 cannula. The procedure was done under pulse oximetry, BP recording, and monitor worker. INDICATION: The patient with persistent heartburn, dyspepsia, and upper abdominal pain, unexplained and not responsive to medical measures, on PPI. Esophagogastroduodenoscopy is performed for detection of any active erosive lesions, Zarate esophagus and/or malignancy also under consideration, H pylori status to be determined, endoscopic hemostasis therapy if needed. DESCRIPTION OF PROCEDURE: The scope was passed with ease. Adequate visualization of the esophagus was made from proximal to distal areas. No upper esophageal lesions identified. No distal esophageal stricture. No uphill or downhill esophageal varices. No Adrianna-Cifuentes tear. No evidence of erosive esophagitis by [place] criteria. No esophageal polyp or tumor mass identified. Z-line was seen at around 40 cm distal to the oral verge, configuration consistent with grade 1 by ZAP classification. No proximal gastric varices noted. Gastric fundus examination by retroflexion showed no polypoid lesions. The examination was a bit compromised due to the presence of some solid food material that could not be aspirated clear. No gastric ulcer, malignant mass, or vascular ectasia identified. In the mid gastric antrum, benign-appearing diminutive polyp was noted, multiple pinch biopsies were obtained and sent for histopathology. Duodenal bulb showed no ulcer. Visualized second part of the duodenum was unremarkable. Multiple pinch biopsies were taken from the gastric antrum and proximal body, and sent for PyloriTek test for H pylori and histopathology. No bleeding was noted from any of the visualized areas at the completion of examination. Photographs were taken of the duodenal bulb, gastric antrum, fundus, and distal esophagus. IMPRESSION: Diminutive gastric antral polyp. The patient tolerated the procedure well. [facility] /[id number]
== END 2020-09-18 09:55 | disposition home or self-care (01) ==
LOC: DL.ENDO 06:58
PROVIDERS: ATTEND Internal Medicine Gastroenterology
DX: K29.50 Unspecified chronic gastritis without bleeding (principal); K31.7 Polyp of stomach and duodenum; E66.09 Other obesity due to excess calories; A04.8 Other specified bacterial intestinal infections; K31.89 Other diseases of stomach and duodenum; Z98.890 Other specified postprocedural states
CPT/HCPCS: 43239; 87077; J2250; J3010; J7042

== ENCOUNTER 2021-04-22 15:23 | Emergency (ER) | payer MEDICAID ==
[2021-04-22 15:38] VITALS: BP 150/88; PULSE 71
[2021-04-22] MEDS ORDERED: Sodium Chloride 0.9% 10 ML Syringe FLUSH PRN (16:03)
[2021-04-22] MEDS ORDERED: Ondansetron 4 MG/2 ML SDV IV ONE (16:04)
[2021-04-22] MEDS ORDERED: Sodium Chloride 0.9% 1,000 ML IV ONE (16:04)
[2021-04-22] MEDS ORDERED: Famotidine 20 MG/2 ML SDV IVPUSH ONE (16:05)
--- NOTE | 2021-04-22 16:05 | EDM.PDOC ---
ED HPI GENERAL MEDICAL PROBLEM - General Chief Complaint: Abdominal Pain Stated Complaint: STOMACH PAIN / HISTORY OF ULCERS Time Seen by Provider: 04/22/21 15:40 Source of Information: Reports: Patient History Limitations: Reports: No Limitations - History of Present Illness INITIAL COMMENTS - FREE TEXT/NARRATIVE: 25 y/o M c/o diffuse burning sensation over his abd as well as nausea, chills. Pt awoke with the pain about noon today and states it feels like the last time he had H. pylori and peptic ulcers. Pt was treated for H. Pylori and his ulcers back in May last year and completed the medication regiment without complications. Today he feels nauseated but has not vomited nor has he had a bowel movement in 2 days which is not abnormal for him. He still has his gall bladder, appendix. No abd surgeries. Onset: Today, Sudden Duration: Hour(s): Location: Reports: Abdomen Quality: Reports: Burning Improves with: Reports: None Worsens with: Reports: None Associated Symptoms: Reports: Nausea/Vomiting Treatments ORE DRYER: Reports: Other (see below) Other Treatments ORE DRYER: Pepto Bismol Abdomen Pain Score (Numeric/FACES): 4 - Related Data Allergies Allergy/AdvReac Type Severity Reaction Status Date / Time No Known Allergies Allergy Verified 09/18/20 07:16 Home Meds: Home Meds Acetaminophen [Tylenol Extra Strength] 500 mg PO Q6H PRN 09/17/20 [History] Calcium Carbonate/Vitamin D3 [Calcium 1,000 + D3 Caplet] 1,000 mg PO DAILY 09/17/20 [History] Pantoprazole Sodium [Protonix] 40 mg PO DAILY 09/17/20 [History] Past Medical History - Past Health History Medical/Surgical History: Denies Medical/Surgical History HEENT History: Reports: Otitis Media Cardiovascular History: Reports: None Respiratory History: Reports: None Gastrointestinal History: Reports: Chronic Constipation, GERD Genitourinary History: Reports: None Musculoskeletal History: Reports: Back Pain, Chronic Neurological History: Reports: None Psychiatric History: Reports: Anxiety Endocrine/Metabolic History: Reports: Obesity/BMI 30+ Hematologic History: Reports: None Immunologic History: Reports: None Oncologic (Cancer) History: Reports: None Dermatologic History: Reports: None - Infectious Disease History Infectious Disease History: Reports: None - Past Surgical History Head Surgeries/Procedures: Reports: None HEENT Surgical History: Reports: Oral Surgery Cardiovascular Surgical History: Reports: None Respiratory Surgical History: Reports: None GI Surgical History: Reports: None Male Surgical History: Reports: None Endocrine Surgical History: Reports: None Neurological Surgical History: Reports: None Musculoskeletal Surgical History: Reports: None Social & Family History - Family History Family Medical History: No Pertinent Family History - Tobacco Use Tobacco Use Status *Q: Never Tobacco User Second Hand Smoke Exposure: No - Caffeine Use Caffeine Use: Reports: None Caffeine Use Comment: 1 CUP TEA. 1 SODA DAILY - Recreational Drug Use Recreational Drug Use: No - Living Situation & Occupation Living situation: Reports: with Family Occupation: Employed ED ROS GENERAL - Review of Systems Review Of Systems: Comprehensive ROS is negative, except as noted in HPI. ED EXAM, GI/ABD - Physical Exam Exam: See Below Exam Limited By: No Limitations General Appearance: Alert, No Apparent Distress Throat/Mouth: Normal Inspection, Normal Lips, Normal Teeth, Normal Gums, Normal Oropharynx, Normal Voice, No Airway Compromise Head: Atraumatic, Normocephalic Neck: Normal Inspection, Supple, Non-Tender, Full Range of Motion Respiratory/Chest: No Respiratory Distress, Lungs Clear Cardiovascular: Normal Peripheral Pulses, Regular Rate, Rhythm GI/Abdominal Exam: Soft, Tender (Male) Exam: Deferred Rectal (Males) Exam: Deferred Back Exam: Normal Inspection, Full Range of Motion, NT Extremities: Normal Inspection, Normal Range of Motion, Non-Tender, Normal Capillary Refill, No Pedal Edema Neurological: Alert, Oriented, CN II-XII Intact, Normal Cognition, Normal Gait, Normal Reflexes, No Motor/Sensory Deficits Psychiatric: Normal Affect, Normal Mood Skin Exam: Warm, Dry, Intact, Normal Color, No Rash Course - Vital Signs Last Recorded V/S: Last Vital Signs Temp 98.1 F 04/22/21 15:32 Pulse 71 04/22/21 15:32 Resp 18 04/22/21 15:32 BP 150/88 H 04/22/21 15:32 Pulse Ox 99 04/22/21 15:32 - Orders/Labs/Meds Orders: Active Orders 24 hr Category Date Time Status Peripheral IV Care [RC] . DIRECTED Care 04/22/21 16:04 Active UA RFX TEJA AND CULT IF INDIC [URIN] Stat Lab 04/22/21 16:04 Ordered Sodium Chloride 0.9% [Saline Flush] Med 04/22/21 16:03 Active 10 ml FLUSH ASDIRECTED PRN Peripheral IV Insertion Adult [OM.PC] Stat Oth 04/22/21 16:03 Ordered Medication Orders Sodium Chloride (Sodium Chloride 0.9% 10 Ml Syringe) 10 ml FLUSH ASDIRECTED PRN PRN Reason: Keep Vein Open Last Admin: 04/22/21 16:16 Dose: 10 ml Documented by: FANNIE Labs: Laboratory Tests 04/22/21 04/22/21 Range/Units 16:13 16:13 WBC 9.0 (5.0-10.0) 10^3/uL RBC 5.33 (4.6-6.2) 10^6/uL Hgb 15.6 D (14.0-18.0) g/dL Hct 45.8 (40.0-54.0) % MCV 85.9 (80-100) fL MCH 29.3 (27.0-34.0) pg MCHC 34.1 (33.0-35.0) g/dL Plt Count 194 (150-450) 10^3/uL Neut % (Auto) 74.9 (42.2-75.2) % Lymph % (Auto) 16.5 L (20.5-50.1) % [place] % (Auto) 6.6 (2-8) % Eos % (Auto) 1.8 (1.0-3.0) % Baso % (Auto) 0.2 (0.0-1.0) % Sodium 141 (136-145) mmol/L Potassium 3.8 (3.5-5.1) mmol/L Chloride 102 (98-107) mmol/L Carbon Dioxide 28 (21-32) mmol/L Anion Gap 14.8 H (7-13) mEq/L BUN 13 (7-18) mg/dL Creatinine 1.18 (0.70-1.30) mg/dL Est Cr Clr Drug Dosing 108.15 mL/min Estimated GFR (MDRD) > 60 BUN/Creatinine Ratio 11.0 (No establ ref range) Glucose 92 (70-99) mg/dL Calcium 8.3 L (8.5-10.1) mg/dL Total Bilirubin 1.5 H (0.2-1.0) mg/dL AST 39 H (15-37) U/L ALT 89 H (16-63) U/L Alkaline Phosphatase 92 (46-116) U/L C-Reactive Protein 2.2 H (0.0-0.9) mg/dL Total Protein 7.9 (6.4-8.2) g/dL Albumin 3.8 (3.4-5.0) g/dL Globulin 4.1 Albumin/Globulin Ratio 0.9 Amylase 16 L (25-115) U/L Lipase 105 (73-393) U/L Meds: Medications Generic Name Dose Route Start Last Admin Trade Name Freq PRN Reason Stop Dose Admin Sodium Chloride 10 ml 04/22/21 16:03 04/22/21 16:16 Sodium Chloride 0.9% 10 Ml Syringe FLUSH 10 ml ASDIRECTED PRN Administration Keep Vein Open Discontinued Medications Generic Name Dose Route Start Last Admin Trade Name Gusq PRN Reason Stop Dose Admin Famotidine 20 mg 04/22/21 16:05 04/22/21 16:21 Famotidine 20 Mg/2 Ml Sdv IVPUSH 04/22/21 16:06 20 mg ONETIME ONE Administration Sodium Chloride 1,000 mls @ 999 mls/hr 04/22/21 16:04 04/22/21 16:16 Normal Saline IV 04/22/21 17:04 999 mls/hr .BOLUS ONE Administration Iopamidol 100 ml 04/22/21 17:31 04/22/21 17:53 Iopamidol 612 Mg/Ml 100 Ml Bottle IVPUSH 04/22/21 17:32 100 ml ONETIME ONE Administration Iopamidol 100 ml 04/22/21 17:31 04/22/21 17:53 Iopamidol 612 Mg/Ml 100 Ml Bottle IVPUSH 04/22/21 17:32 25 ml ONETIME ONE Administration Ondansetron HCl 4 mg 04/22/21 16:04 04/22/21 16:19 Ondansetron 4 Mg/2 Ml Sdv IV 04/22/21 16:05 4 mg ONETIME ONE Administration - Re-Assessments/Exams Free Text/Narrative Re-Assessment/Exam: 04/22/21 18:21 Discussed exam, labs and CT with pt. Explained the negative CT results and that he needs to follow up with a GI doctor to further investigatge his symptoms. Pt agreed and understood. Departure - Departure Time of Disposition: 18:30 Disposition: Home, Self-Care 01 Condition: Good Clinical Impression: Epigastric abdominal pain - Discharge Information *PRESCRIPTION DRUG MONITORING PROGRAM REVIEWED*: Not Applicable *COPY OF PRESCRIPTION DRUG MONITORING REPORT IN PATIENT MERT: Not Applicable Instructions: Abdominal Pain, Adult, [id number] Forms: ED Department Discharge Additional Instructions: RX: Zofran RX: Pepcid Use Tylenol or Motrin for pain as needed. Follow up with Dr. Estevan rogersamna investigate your symptoms. If any new symptoms or concerns develop contact your primary care facility or return to the ER. Sepsis Event Note (ED) - Evaluation Sepsis Screening Result: No Definite Risk - Focused Exam Vital Signs: Vital Signs Temp Pulse Resp BP Pulse Ox 04/22/21 15:32 98.1 F 71 18 150/88 H 99
[2021-04-22 16:37] LABS: ANION GAP 14.8 mEq/L (7-13); CHLORIDE,CL 102 mmol/L (98-107); SODIUM,NA 141 mmol/L (136-145)
[2021-04-22] MEDS ORDERED: Iopamidol 612 MG/ML 100 ML Bottle IVPUSH ONE ×2 (17:31)
--- NOTE | 2021-04-22 18:09 | CT ---
PROCEDURE INFORMATION: Exam: CT Abdomen And Pelvis With Contrast Exam date and time: 04/22/2021 5:46 PM Age: 25 years old Clinical indication: Abdominal pain; Localized; Upper; Additional info: Upper abdominal pain, vomiting, t-bili 1.5 TECHNIQUE: Imaging protocol: Computed tomography of the abdomen and pelvis with contrast. Radiation optimization: All CT scans at this facility use at least one of these dose optimization techniques: automated exposure control; mA and/or kV adjustment per patient size (includes targeted exams where dose is matched to clinical indication); or iterative reconstruction. Contrast material: ISOVUE 300; Contrast volume: 125 ml; Contrast route: INTRAVENOUS (IV); COMPARISON: CT Abdomen Pelvis w Cont 09/01/2020 9:40 AM FINDINGS: Lungs: The visualized portions of the lung bases are normal. Heart: The heart is not enlarged. Liver: There is a diffuse decrease in hepatic parenchymal density. Gallbladder and bile ducts: The gallbladder is normal. There is no evidence of biliary ductal dilation. Pancreas: The pancreas is normal. Spleen: The spleen is normal. Adrenal glands: The adrenal glands are normal. Kidneys and ureters: The kidneys are normal. Stomach and bowel: The stomach is normal. No over distention of bowel loops is seen. Appendix: A normal appendix is identified. Intraperitoneal space: No evidence of intraperitoneal free air. Vasculature: The aorta is normal. Lymph nodes: No pathologic lymph node enlargement is demonstrated. Urinary bladder: The bladder is normal. Reproductive: The prostate and seminal vesicles are normal. Bones/joints: Unremarkable Soft tissues: Unremarkable IMPRESSION: 1. Moderate fatty infiltration of the liver. 2. No acute abnormality.
== END 2021-04-22 18:34 | disposition home or self-care (01) ==
LOC: DL.ED 15:23
DX: R10.13 Epigastric pain (principal); E66.9 Obesity, unspecified; Z68.43 Body mass index [BMI] 50.0-59.9, adult; Z79.899 Other long term (current) drug therapy
CPT/HCPCS: 36415; 74177; 80053; 82150; 83690; 85025; 86140; 96374; 96375; 99284; J2405; J3490; J7030; Q9967

== ENCOUNTER 2021-10-13 16:08 | Emergency (ER) | payer BC, MEDICAID ==
[2021-10-13 16:55] VITALS: BP 138/99; PULSE 86
== END 2021-10-13 18:00 | disposition home or self-care (01) ==
LOC: DL.ED 16:08
DX: H60.313 Diffuse otitis externa, bilateral (principal); H69.83 Other specified disorders of Eustachian tube, bilateral; K21.9 Gastro-esophageal reflux disease without esophagitis; E66.9 Obesity, unspecified; Z68.43 Body mass index [BMI] 50.0-59.9, adult
CPT/HCPCS: 99282; 99283

== ENCOUNTER 2021-10-17 15:31 | Emergency (ER) | payer BC ==
[2021-10-17] MEDS ORDERED: Amoxicillin/Clavulanate K 875-125 MG Tab PO ONE (15:32)
[2021-10-17 15:43] VITALS: BP 149/96; PULSE 92
[2021-10-17] MEDS ORDERED: Amoxicillin/Clavulanate K 875-125 MG Tab ONE (16:47)
== END 2021-10-17 17:07 | disposition home or self-care (01) ==
LOC: DL.ED 15:31
DX: H65.03 Acute serous otitis media, bilateral (principal); K21.9 Gastro-esophageal reflux disease without esophagitis; E66.9 Obesity, unspecified; Z68.43 Body mass index [BMI] 50.0-59.9, adult; Z79.899 Other long term (current) drug therapy
CPT/HCPCS: 99281; 99282; A9270

== ENCOUNTER 2022-12-21 20:31 | Emergency (ER) | payer BC ==
[2022-12-21 20:53] VITALS: BP 143/90; PULSE 98
[2022-12-21] MEDS ORDERED: Take Home: Cyclobenzaprine 10 MG Tab, 4 Tab Pack PO ONE (22:10)
[2022-12-21] MEDS ORDERED: Ketorolac 30 MG/ML SDV IM ONE (22:10)
[2022-12-21] MEDS ORDERED: Orphenadrine 60 MG/2 ML Inj IM ONE (22:10)
== END 2022-12-21 22:24 | disposition home or self-care (01) ==
LOC: DL.ED 20:31
DX: S39.012A Strain of muscle, fascia and tendon of lower back, initial encounter (principal); E66.9 Obesity, unspecified; Z68.42 Body mass index [BMI] 45.0-49.9, adult; X50.0XXA Overexertion from strenuous movement or load, initial encounter; Y92.39 Other specified sports and athletic area as the place of occurrence of the external cause
CPT/HCPCS: 72100; 72220; 96372; 99283; A9270; J1885; J2360

== ENCOUNTER 2023-01-31 16:40 | Emergency (ER) | payer BC ==
[2023-01-31 19:40] LABS: APPEARANCE,URINE CLEAR (CLEAR); BILIRUBIN,URINE NEGATIVE (NEGATIVE); COLOR,URINE YELLOW (YELLOW); GLUCOSE,URINE NEGATIVE (NEGATIVE); KETONES,URINE NEGATIVE (NEGATIVE); LEUKOCYTE ESTERASE,URINE NEGATIVE (NEGATIVE); NITRITE,URINE NEGATIVE (NEGATIVE); OCCULT BLOOD,URINE NEGATIVE (NEGATIVE); PROTEIN,URINE NEGATIVE (NEGATIVE); UROBILINOGEN,URINE 0.2 mg/dL (0.2-1.0)
[2023-01-31 19:41] LABS: AMPHETAMINES,URINE NEGATIVE (NEGATIVE); BARBITURATES,URINE NEGATIVE (NEGATIVE); BENZODIAZEPINE,URINE NEGATIVE (NEGATIVE); MDMA (ECSTASY), URINE NEGATIVE (NEGATIVE); METHADONE,URINE NEGATIVE (NEGATIVE); METHAMPHETAMINES,URINE NEGATIVE (NEGATIVE); OPIATES,URINE NEGATIVE (NEGATIVE); OXYCODONE,URINE NEGATIVE (NEGATIVE); PHENCYCLIDINE,URINE NEGATIVE (NEGATIVE); TCA,URINE NEGATIVE (NEGATIVE)
[2023-01-31 19:48] LABS: BASOPHILS PERCENT AUTO 0.2 % (0.0-1.0); EOSINOPHILS PERCENT AUTO 0.7 % (1.0-3.0); HEMATOCRIT 47.2 % (40.0-54.0); HEMOGLOBIN 16.1 g/dL (14.0-18.0); LYMPHOCYTES PERCENT AUTO 10.7 % (20.5-50.1); MEAN CORPUSCULAR HEMOGLOBIN 28.8 pg (27.0-34.0); MEAN CORPUSCULAR HGB CONC 34.1 g/dL (33.0-35.0); MEAN CORPUSCULAR VOLUME 84.4 fL (80-100); MONOCYTES PERCENT AUTO 4.2 % (2-8); NEUTROPHILS PERCENT AUTO 84.2 % (42.2-75.2); PLATELET COUNT,PLT 217 10^3/uL (150-450); RED BLOOD CELL COUNT 5.59 10^6/uL (4.6-6.2); WHITE BLOOD CELL COUNT,WBC 13.2 10^3/uL (5.0-10.0)
[2023-01-31] MEDS ORDERED: Famotidine 20 MG/2 ML SDV IVPUSH ONE (20:32)
[2023-01-31] MEDS ORDERED: Ondansetron 4 MG/2 ML SDV IVPUSH ONE (20:32)
[2023-01-31] MEDS ORDERED: Pantoprazole 40 MG Vial IVPUSH ONE (20:32)
[2023-01-31 20:36] LABS: A/G RATIO 1.1; ALANINE AMINOTRANSFERASE,ALT 73 U/L (16-63); ALBUMIN 4.2 g/dL (3.4-5.0); ALKALINE PHOSPHATASE 98 U/L (46-116); AMYLASE 17 U/L (25-115); ASPARTATE AMNIOTRANSFERASE,AST 35 U/L (15-37); BILIRUBIN TOTAL 1.3 mg/dL (0.2-1.0); BLOOD UREA NITROGEN,BUN 12 mg/dL (7-18); BUN/CREATININE RATIO 10.3 (No establ ref range); C-REACTIVE PROTEIN 0.5 mg/dL (0.0-0.9); CARBON DIOXIDE,CO2 26 mmol/L (21-32); CHLORIDE,CL 103 mmol/L (98-107); CREATININE 1.16 mg/dL (0.70-1.30); GLUCOSE RANDOM 101 mg/dL (70-99); LIPASE 63 U/L (73-393); MAGNESIUM 1.9 mg/dL (1.8-2.4); SODIUM,NA 139 mmol/L (136-145)
[2023-01-31 20:43] LABS: LACTIC ACID 1.4 mmol/L (0.4-2.0)
[2023-01-31] MEDS ORDERED: Sodium Chloride 0.9% 1,000 ML IV ONE (20:47)
[2023-01-31 20:52] LABS: ESTIMATED GFR 89 mL/min (>=60); ETHANOL BLOOD MEDICAL < 3 mg/dL (0)
[2023-01-31] MEDS ORDERED: GI Cocktail Oral Solution 30 ML PO ONE (21:09)
[2023-01-31] MEDS ORDERED: Iopamidol 612 MG/ML 100 ML Bottle IVPUSH ONE (21:28)
[2023-01-31 23:20] VITALS: BP 147/87; PULSE 69
== END 2023-01-31 23:13 | disposition home or self-care (01) ==
LOC: DL.ED 16:40
DX: K57.30 Diverticulosis of large intestine without perforation or abscess without bleeding (principal); K25.4 Chronic or unspecified gastric ulcer with hemorrhage; R16.2 Hepatomegaly with splenomegaly, not elsewhere classified
CPT/HCPCS: 36415; 74177; 80053; 80305; 80307; 81003; 82150; 82272; 83605; 83690; 83735; 85025; 86140; 96361; 96374; 96375; 99284; A9270; C9113; J2405; J3490; J7030; Q9967

== ENCOUNTER 2023-02-25 19:31 | Emergency (ER) | payer BC, MEDICAID ==
[2023-02-25 20:13] LABS: BASOPHILS PERCENT AUTO 0.3 % (0.0-1.0); EOSINOPHILS PERCENT AUTO 5.2 % (1.0-3.0); HEMATOCRIT 46.8 % (40.0-54.0); HEMOGLOBIN 15.9 g/dL (14.0-18.0); LYMPHOCYTES PERCENT AUTO 14.9 % (20.5-50.1); MEAN CORPUSCULAR HEMOGLOBIN 28.5 pg (27.0-34.0); MONOCYTES PERCENT AUTO 6.5 % (2-8); NEUTROPHILS PERCENT AUTO 73.1 % (42.2-75.2); PLATELET COUNT,PLT 207 10^3/uL (150-450); RED BLOOD CELL COUNT 5.57 10^6/uL (4.6-6.2); WHITE BLOOD CELL COUNT,WBC 7.6 10^3/uL (5.0-10.0)
[2023-02-25 20:20] VITALS: BP 150/100; PULSE 76
[2023-02-25 20:33] LABS: A/G RATIO 0.9; BILIRUBIN TOTAL 1.4 mg/dL (0.2-1.0); BUN/CREATININE RATIO 8.1 (No establ ref range); CREATININE 1.35 mg/dL (0.70-1.30); EST CRCL DRUG DOSING (CG) 95.56 mL/min; PROTEIN TOTAL,TP 8.5 g/dL (6.4-8.2)
[2023-02-25] MEDS ORDERED: GI Cocktail Oral Solution 30 ML PO ONE (21:02)
[2023-02-25] MEDS ORDERED: Lactated Ringers 1,000 ML IV ONE (21:03)
[2023-02-25] MEDS ORDERED: Cyclobenzaprine 10 MG Tab PO ONE (22:28)
== END 2023-02-25 23:53 | disposition home or self-care (01) ==
LOC: DL.ED 19:31
DX: K59.09 Other constipation (principal); R74.8 Abnormal levels of other serum enzymes; M62.838 Other muscle spasm; Z87.19 Personal history of other diseases of the digestive system
CPT/HCPCS: 36415; 80053; 83690; 83735; 85025; 96360; 99284-25; A9270-GY; J7120

== ENCOUNTER 2023-03-03 06:53 | Day surgery (SDC) | payer BC ==
[2023-03-03] MEDS: Dextrose 5%-0.45% NaCl 1,000 ML IV SCH (07:24)
[2023-03-03] MEDS ORDERED: Midazolam 1 MG/ML 2 ML SDV ONE (07:40)
[2023-03-03] MEDS ORDERED: fentaNYL 100 MCG/2 ML SDV IVPUSH ONE (07:41)
[2023-03-03] MEDS ORDERED: Midazolam 1 MG/ML 2 ML SDV IV ONE (07:41)
[2023-03-03] MEDS ORDERED: fentaNYL 100 MCG/2 ML SDV ONE (07:41)
[2023-03-03] MEDS: fentaNYL 100 MCG/2 ML SDV IV ONE ×4 (08:25→08:35)
[2023-03-03] MEDS: Midazolam 1 MG/ML 2 ML SDV IV ONE ×8 (08:27→08:31)
[2023-03-03 09:47] VITALS: BP 129/74; PULSE 53
== END 2023-03-03 10:15 | disposition home or self-care (01) ==
LOC: DL.ENDO 06:53
PROVIDERS: ATTEND Internal Medicine Gastroenterology
DX: K62.5 Hemorrhage of anus and rectum (principal); R19.5 Other fecal abnormalities; K76.0 Fatty (change of) liver, not elsewhere classified; K74.60 Unspecified cirrhosis of liver; F41.1 Generalized anxiety disorder; E66.01 Morbid (severe) obesity due to excess calories; K74.00 Hepatic fibrosis, unspecified; Z98.890 Other specified postprocedural states; Z68.42 Body mass index [BMI] 45.0-49.9, adult
CPT/HCPCS: J2250; J3010; J7042

== ENCOUNTER 2023-03-07 18:23 | Emergency (ER) | payer BC, MEDICAID ==
[2023-03-07 19:22] VITALS: PULSE 70
[2023-03-07] MEDS ORDERED: Lidocaine 2% Viscous Solution 15 ML UD PO ONE (19:34)
[2023-03-07] MEDS ORDERED: Aluminum Hydroxide/Magnesium Hydroxide/Simethicone Susp 30 ML Cup PO ONE (19:36)
[2023-03-07] MEDS ORDERED: Famotidine 20 MG Tab PO ONE (19:37)
[2023-03-07 20:18] VITALS: BP 123/76
== END 2023-03-07 20:12 | disposition home or self-care (01) ==
LOC: DL.ED 18:23
DX: R10.11 Right upper quadrant pain (principal); R10.13 Epigastric pain; K21.9 Gastro-esophageal reflux disease without esophagitis; Z79.899 Other long term (current) drug therapy
CPT/HCPCS: 99283; A9270

== ENCOUNTER 2023-04-09 23:13 | Emergency (ER) | payer MEDICAID ==
[2023-04-10 00:35] VITALS: BP 145/92; PULSE 88
== END 2023-04-10 03:20 | disposition left against medical advice (07) ==
LOC: DL.ED 23:13
DX: Z53.21 Procedure and treatment not carried out due to patient leaving prior to being seen by health care provider (principal)

== ENCOUNTER 2023-04-10 16:55 | Emergency (ER) | payer MEDICAID ==
[2023-04-10 17:23] VITALS: BP 136/84; PULSE 75
[2023-04-10] MEDS ORDERED: Pantoprazole 40 MG Tab.CR PO ONE (17:24)
[2023-04-10] MEDS ORDERED: Take Home: Ondansetron 4 MG Tab.DIS, 5 Tab Pack PO ONE (17:25)
[2023-04-10] MEDS ORDERED: Ondansetron 4 MG Tab.DIS PO ONE (17:25)
[2023-04-10] MEDS ORDERED: Aluminum Hydroxide/Magnesium Hydroxide/Simethicone Susp 30 ML Cup PO ONE (17:25)
== END 2023-04-10 17:47 | disposition home or self-care (01) ==
LOC: DL.ED 16:55
DX: R10.13 Epigastric pain (principal); K21.9 Gastro-esophageal reflux disease without esophagitis; Z79.899 Other long term (current) drug therapy
CPT/HCPCS: 99282; 99283; A9270-GY; Q0162

== ENCOUNTER 2023-07-23 13:40 | Emergency (ER) | payer MEDICAID ==
[2023-07-23 15:31] LABS: INFLUENZA A NAA NEGATIVE (NEGATIVE); INFLUENZA B NAA NEGATIVE (NEGATIVE); RESPIRATORY SYNCYTIAL VIR NAA NEGATIVE (NEGATIVE)
[2023-07-23 15:35] LABS: CORONAVIRUS COVID-19 NAA POSITIVE (NEGATIVE)
[2023-07-23 15:59] VITALS: BP 147/83; PULSE 62
[2023-07-23] MEDS ORDERED: Hydrocortisone/Neomycin/Polymyxin B Otic Susp 10 ML Bottle EARBOTH ONE (15:59)
== END 2023-07-23 16:05 | disposition home or self-care (01) ==
LOC: DL.ED 13:40
DX: U07.1 COVID-19 (principal); H60.503 Unspecified acute noninfective otitis externa, bilateral; K21.9 Gastro-esophageal reflux disease without esophagitis; E66.9 Obesity, unspecified; Z68.42 Body mass index [BMI] 45.0-49.9, adult
CPT/HCPCS: 0241U; 87081; 87430; 99283; A9270-GY

== ENCOUNTER 2024-12-15 08:43 | Emergency (ER) | payer MEDICAID ==
[2024-12-15 08:51] VITALS: BP 146/76; PULSE 76
[2024-12-15] MEDS: Benzonatate 100 MG Cap PO ONE (08:55)
[2024-12-15] MEDS: Acetaminophen 500 MG Tab PO ONE (08:55)
[2024-12-15] MEDS: Ibuprofen 800 MG Tab PO ONE (08:55)
[2024-12-15] MEDS: guaiFENesin 600 MG Tab.ER PO ONE (09:00)
== END 2024-12-15 09:14 | disposition home or self-care (01) ==
LOC: DL.ED 08:43
DX: J06.9 Acute upper respiratory infection, unspecified (principal); B97.89 Other viral agents as the cause of diseases classified elsewhere; Z79.899 Other long term (current) drug therapy
CPT/HCPCS: 99283; A9270; 99282

== ENCOUNTER 2025-06-27 17:36 | Emergency (ER) | payer MEDICAID ==
[2025-06-27 18:14] LABS: BASOPHILS PERCENT AUTO 0.2 % (0.0-1.0); EOSINOPHILS PERCENT AUTO 1.6 % (1.0-3.0); LYMPHOCYTES PERCENT AUTO 17.3 % (20.5-50.1); MONOCYTES PERCENT AUTO 5.0 % (2-8); NEUTROPHILS PERCENT AUTO 75.9 % (42.2-75.2); PLATELET COUNT,PLT 218 10^3/uL (150-450); RED BLOOD CELL COUNT 5.64 10^6/uL (4.6-6.2); WHITE BLOOD CELL COUNT,WBC 10.8 10^3/uL (5.0-10.0)
[2025-06-27 18:58] LABS: A/G RATIO 1.0; ALANINE AMINOTRANSFERASE,ALT 77.0 U/L (16-63); ASPARTATE AMNIOTRANSFERASE,AST 37.0 U/L (15-37); BILIRUBIN TOTAL 1.5 mg/dL (0.2-1.0); BLOOD UREA NITROGEN,BUN 10.0 mg/dL (7-18); CARBON DIOXIDE,CO2 29.0 mmol/L (21-32); CHLORIDE,CL 103.0 mmol/L (98-107); CREATININE 1.11 mg/dL (0.70-1.30); EST CRCL DRUG DOSING (CG) 110.97 mL/min; GLUCOSE RANDOM 99.0 mg/dL (70-99); PHOSPHORUS 2.9 mg/dL (2.6-4.7); POTASSIUM,K 4.1 mmol/L (3.5-5.1); PROTEIN TOTAL,TP 8.2 g/dL (6.4-8.2); SODIUM,NA 142.0 mmol/L (136-145); TSH ULTRASENSITIVE 0.42 uIU/mL (0.36-3.74)
[2025-06-27 19:06] LABS: ESTIMATED GFR 92.0 mL/min (>=60)
[2025-06-27] MEDS: Ondansetron 4 MG Tab.DIS PO ONE (20:47)
[2025-06-27] MEDS: Take Home: Ondansetron 4 MG Tab.DIS, 5 Tab Pack PO ONE (20:48)
[2025-06-27 20:55] VITALS: BP 126/86; PULSE 72
== END 2025-06-27 20:50 | disposition home or self-care (01) ==
LOC: DL.ED 17:36
DX: E66.01 Morbid (severe) obesity due to excess calories (principal); R53.83 Other fatigue; R53.81 Other malaise; Z79.899 Other long term (current) drug therapy
CPT/HCPCS: 36415; 80053; 82607; 83735; 84100; 84443; 85025; 86140; 86308; 87081; 87428-QW; 87430; 99284; A9270-GY; Q0162

== ENCOUNTER 2025-07-15 16:22 | Emergency (ER) | payer MEDICAID ==
[2025-07-15] MEDS: Ondansetron 4 MG/2 ML SDV IVPUSH ONE (16:47)
[2025-07-15] MEDS: Ketorolac 30 MG/ML SDV IVPUSH ONE (16:47)
[2025-07-15 17:00] LABS: BASOPHILS PERCENT AUTO 0.2 % (0.0-1.0); EOSINOPHILS PERCENT AUTO 2.1 % (1.0-3.0); LYMPHOCYTES PERCENT AUTO 19.2 % (20.5-50.1); MONOCYTES PERCENT AUTO 6.5 % (2-8); NEUTROPHILS PERCENT AUTO 72.0 % (42.2-75.2); PLATELET COUNT,PLT 230 10^3/uL (150-450); RED BLOOD CELL COUNT 5.74 10^6/uL (4.6-6.2); WHITE BLOOD CELL COUNT,WBC 10.1 10^3/uL (5.0-10.0)
[2025-07-15 17:05] LABS: APPEARANCE,URINE SLIGHTLY CLOUDY (CLEAR); GLUCOSE,URINE NEGATIVE (NEGATIVE); OCCULT BLOOD,URINE NEGATIVE (NEGATIVE)
[2025-07-15 17:12] LABS: SQUAMOUS EPITHELIAL CELLS,UR RARE /HPF (NOT SEEN)
[2025-07-15 17:20] LABS: A/G RATIO 0.9; ALANINE AMINOTRANSFERASE,ALT 90.0 U/L (16-63); ASPARTATE AMNIOTRANSFERASE,AST 38.0 U/L (15-37); BILIRUBIN TOTAL 2.0 mg/dL (0.2-1.0); BLOOD UREA NITROGEN,BUN 8.0 mg/dL (7-18); CARBON DIOXIDE,CO2 29.0 mmol/L (21-32); CHLORIDE,CL 106.0 mmol/L (98-107); CREATININE 1.4 mg/dL (0.70-1.30); EST CRCL DRUG DOSING (CG) 87.99 mL/min; GLUCOSE RANDOM 93.0 mg/dL (70-99); POTASSIUM,K 4.3 mmol/L (3.5-5.1); PROTEIN TOTAL,TP 8.9 g/dL (6.4-8.2); SODIUM,NA 145.0 mmol/L (136-145)
[2025-07-15 17:21] LABS: ESTIMATED GFR 70.0 mL/min (>=60)
[2025-07-15] MEDS: Aluminum Hydroxide/Magnesium Hydroxide/Simethicone Susp 30 ML Cup PO ONE (17:26)
[2025-07-15 17:39] VITALS: BP 126/95; PULSE 75
== END 2025-07-15 17:37 | disposition home or self-care (01) ==
LOC: DL.ED 16:22
DX: R10.11 Right upper quadrant pain (principal); K21.9 Gastro-esophageal reflux disease without esophagitis; Z79.899 Other long term (current) drug therapy
CPT/HCPCS: 36415; 80053; 81001; 83690; 85025; 96374; 96375; 99284; J1885; J2405; J3490; 99283; A9270-GY